=== PATIENT | male | born 1980 | race African-American/Black ===

== ENCOUNTER 2017-02-04 19:29 | Emergency (ER) | payer MEDICAID, OTHER ==
[~2017-02-04] VITALS: Ht 177.8 cm; Wt 68.8 kg
[2017-02-04 19:32] VITALS: Ht 177.8 cm; Wt 68.8 kg
[2017-02-04] MEDS ORDERED: IBUPROFEN 600 MG TAB PO ONE (20:30)
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
[2017-02-04] MEDS ORDERED: IBUP-1542 PO (21:47)
[2017-02-04] MEDS ORDERED: ORPH100T PO (21:48)
[2017-02-04] MEDS ORDERED: HYDR-906 PO (21:48)
== END 2017-02-04 22:19 | disposition home or self-care (01) ==
LOC: FTE 19:29
DX: M54.2 Cervicalgia (principal); M25.532 Pain in left wrist; M25.561 Pain in right knee; M25.562 Pain in left knee; M25.571 Pain in right ankle and joints of right foot; M79.671 Pain in right foot
CPT/HCPCS: 72040; 73110; 73562; 73610; 73630; Z7502; Z7610